=== PATIENT | female | born 1980 | race Two or more races ===

== ENCOUNTER 2021-01-07 15:27 | Emergency (ER) | payer MEDICAID ==
[2021-01-07] VITALS (7 sets, daily range): BP systolic 100–122; BP diastolic 65–78
[~2021-01-07] VITALS: Ht 157.5 cm; Wt 74.8 kg
--- NOTE | 2021-01-07 16:10 | Emergency Room Report ---
History of Present Illness General Chief Complaint: Headache Source: Patient Present Illness HPI Patient is a 40-year-old female presents for increased headache and generalized weakness. Reports having onset of symptoms over the past 3 days. Associated mild headache which had gradual onset and had been slightly improving. Denies any vomiting. Denies any focal weakness. Prior history of gallstones as well as anemia in the past. States she had just finished her menses. Denies any dysuria or cough. Allergies: Coded Allergies: No Known Allergies (Unverified , 01/07/21) COVID-19 Screening Contact w/high risk pt: No Experienced COVID-19 symptoms?: No COVID-19 Testing performed PHYSICAL CHEMIST: No Patient History Past Medical History: see triage record Last Menstrual Period: 01/05/21 Now: No Reviewed Nursing Documentation: PMH: Agreed; PSxH: Agreed Nursing Documentation-PMH Past Medical History: No Stated History Review of Systems All Other Systems: negative except mentioned in HPI Physical Exam Vital Signs Date Time Temp Pulse Resp B/P (MAP) Pulse Ox O2 Delivery O2 Flow Rate FiO2 01/07/21 15:47 98.2 82 18 124/68 (86) 98 Room Air Sp02 EP Interpretation: reviewed, normal General Appearance: normal inspection, well appearing, no apparent distress, alert, GCS 15, non-toxic, obese Head: atraumatic ENT: normal ENT inspection, hearing grossly normal, normal voice Neck: normal inspection, full range of motion, supple, no bony tend Respiratory: normal inspection, lungs clear, normal breath sounds, no respiratory distress, no retraction, no wheezing Cardiovascular #1: regular rate, rhythm, no edema Gastrointestinal: normal inspection, normal bowel sounds, non tender, soft, no guarding, no hernia Genitourinary: no CVA tenderness Musculoskeletal: normal inspection, back normal, normal range of motion Neurologic: alert, motor strength/tone normal, 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 Total critical care time excluding procedures approximately 45 minutes. Medical Decision Making Diagnostic Impression: Primary Impression: Anemia ER Course Patient presents for increased headache. Differential diagnosis include was not limited to intracranial hemorrhage, anemia, dehydration among others. Because of complexity of patient's case laboratory tests and imaging studies were ordered. Patient appears to have some significant anemia based on laboratory testing. Patient was consented for blood transfusion. She was given IV fluids as well as transfusion of blood. She states she felt much better after transfusion. Patient denies any active bleeding at this time. CT of the head read by radiologist no intracranial pathology. Patient advised to follow-up with her primary care physician for recheck. She is advised to continue taking iron and to return if she had any worsening of her condition or any other new concerns. This medical record is generated with [employer] director global sales software. There may be some director global sales discrepancies related to use of this software Labs Test 01/07/21 16:14 White Blood Count 7.3 K/UL (4.8-10.8) Red Blood Count 4.32 M/UL (4.20-5.40) Hemoglobin 7.1 G/DL (12.0-16.0) Hematocrit 26.2 % (37.0-47.0) Mean Corpuscular Volume 61 FL (80-99) Mean Corpuscular Hemoglobin 16.5 PG (27.0-31.0) Mean Corpuscular Hemoglobin Concent 27.3 G/DL (32.0-36.0) Red Cell Distribution Width 16.8 % (11.6-14.8) Platelet Count 426 K/UL (150-450) Mean Platelet Volume 8.9 FL (6.5-10.1) Neutrophils (%) (Auto) % (45.0-75.0) Lymphocytes (%) (Auto) % (20.0-45.0) Monocytes (%) (Auto) % (1.0-10.0) Eosinophils (%) (Auto) % (0.0-3.0) Basophils (%) (Auto) % (0.0-2.0) Differential Total Cells Counted 100 Neutrophils % (Manual) 71 % (45-75) Lymphocytes % (Manual) 23 % (20-45) Monocytes % (Manual) 6 % (1-10) Eosinophils % (Manual) 0 % (0-3) Basophils % (Manual) 0 % (0-2) Band Neutrophils 0 % (0-8) Platelet Estimate Increased Platelet Morphology Normal Hypochromasia 2+ Anisocytosis 2+ Microcytosis 2+ Ovalocytes Occasional Prothrombin Time 13.0 SEC (9.30-11.50) Prothromb Time International Ratio 1.2 (0.9-1.1) Activated Partial Thromboplast Time 22 SEC (23-33) Urine Color Yellow Urine Appearance Slightly cloudy Urine pH 7 (4.5-8.0) Urine Specific [place] 1.010 (1.005-1.035) Urine Protein 3+ (NEGATIVE) Urine Glucose (UA) Negative (NEGATIVE) Urine Ketones 1+ (NEGATIVE) Urine Blood 5+ (NEGATIVE) Urine Nitrite Positive (NEGATIVE) Urine Bilirubin Negative (NEGATIVE) Urine Urobilinogen Normal MG/DL (0.0-1.0) Urine Leukocyte Esterase 2+ (NEGATIVE) Urine RBC Tntc /HPF (0 - 2) Urine WBC 5-10 /HPF (0 - 2) Urine Squamous Epithelial Cells Moderate /LPF (NONE/OCC) Urine Bacteria Few /HPF (NONE) Urine HCG, Qualitative Negative (NEGATIVE) Sodium Level 141 MMOL/L (136-145) Potassium Level 3.7 MMOL/L (3.5-5.1) Chloride Level 106 MMOL/L (98-107) Carbon Dioxide Level 25 MMOL/L (21-32) Anion Gap 10 mmol/L (5-15) Blood Urea Nitrogen 10 mg/dL (7-18) Creatinine 0.7 MG/DL (0.55-1.30) Estimat Glomerular Filtration Rate > 60 mL/min (>60) Glucose Level 85 MG/DL (74-106) Calcium Level 8.7 MG/DL (8.5-10.1) Total Bilirubin 0.2 MG/DL (0.2-1.0) Aspartate Amino Transf (AST/SGOT) 20 U/L (15-37) Alanine Aminotransferase (ALT/SGPT) 23 U/L (12-78) Alkaline Phosphatase 74 U/L (46-116) Total Protein 7.4 G/DL (6.4-8.2) Albumin 3.5 G/DL (3.4-5.0) Globulin 3.9 g/dL Albumin/Globulin Ratio 0.9 (1.0-2.7) Thyroid Stimulating Hormone (TSH) 2.011 uiU/mL (0.358-3.740) Last Vital Signs Date Time Temp Pulse Resp B/P (MAP) Pulse Ox O2 Delivery O2 Flow Rate FiO2 01/07/21 15:47 98.2 82 18 124/68 (86) 98 Room Air Status: improved Disposition: HOME, SELF-CARE Condition: Stable Scripts Docusate Sodium* (COLACE*) 100 Mg Capsule 100 MG ORAL TWICE A DAY, #20 CAP Prov: Nahum Serrano MD 01/07/21 Ferrous Sulfate* (FERROUS SULFATE*) 325 Mg Tablet 325 MG ORAL DAILY for SUPPLEMENT, #30 TAB 0 Refills Prov: Nahum Serrano MD 01/07/21 Referrals: NON PHYSICIAN (PCP) Nahum Serrano MD Jan 07, 2021 16:10
[2021-01-07 16:46] LABS: APPEARANCE,URINE SLIGHTLY CLOUDY; BILIRUBIN, URINE NEGATIVE (NEGATIVE); GLUCOSE, URINE (UA) NEGATIVE (NEGATIVE); KETONES,URINE 1+ (NEGATIVE); LEUKOCYTE ESTERASE ,URINE 2+ (NEGATIVE); NITRITE,URINE POSITIVE (NEGATIVE); PH,URINE 7 (4.5-8.0); PROTEIN,URINE 3+ (NEGATIVE); UROBILINOGEN,URINE NORMAL MG/DL (0.0-1.0)
[2021-01-07 16:48] LABS: INR 1.2 (0.9-1.1)
[2021-01-07 16:51] LABS: ANION GAP 10 mmol/L (5-15); BLOOD UREA NITROGEN 10 mg/dL (7-18); CALCIUM 8.7 MG/DL (8.5-10.1); CARBON DIOXIDE 25 MMOL/L (21-32); CHLORIDE 106 MMOL/L (98-107); CREATININE 0.7 MG/DL (0.55-1.30); HEMATOCRIT 26.2 % (37.0-47.0); HEMOGLOBIN 7.1 G/DL (12.0-16.0); MEAN CORPUSCULAR VOLUME 61 FL (80-99); PLATELET COUNT 426 K/UL (150-450); POTASSIUM 3.7 MMOL/L (3.5-5.1); RED BLOOD COUNT 4.32 M/UL (4.20-5.40); RED CELL DISTRIBUTION WIDTH 16.8 % (11.6-14.8); SODIUM 141 MMOL/L (136-145); WHITE BLOOD COUNT 7.3 K/UL (4.8-10.8)
[2021-01-07 16:54] LABS: COLOR,URINE YELLOW
--- NOTE | 2021-01-07 17:04 | Diagnostic Imaging Report ---
EXAM: CT Head Without Intravenous Contrast CLINICAL HISTORY: DIZZY TECHNIQUE: Axial computed tomography images of the head/brain without intravenous contrast. CTDI is 53.4 mGy and DLP is 992.1 mGy-cm. One or more of the following dose reduction techniques were used: automated exposure control, adjustment of the mA and/or kV according to patient size, use of iterative reconstruction technique. COMPARISON: None FINDINGS: Brain: No acute infarct or hemorrhage. No extra-axial fluid collection. No mass effect or midline shift. Ventricles and sulci: Normal. No ventriculomegaly or intraventricular hemorrhage. Bones: Normal. No bony lesion or acute fracture. Subcutaneous tissues: Normal. Sinuses: Normal. No air-fluid levels or mucosal thickening. Mastoid air cells: Normal. Orbits: Grossly unremarkable. IMPRESSION: No acute intracranial abnormality.
[2021-01-07 17:06] LABS: ALANINE AMINOTRANSFERASE 23 U/L (12-78); ALBUMIN 3.5 G/DL (3.4-5.0); ALBUMIN/GLOBULIN RATIO 0.9 (1.0-2.7); ALKALINE PHOSPHATASE 74 U/L (46-116); ASPARTATE AMINO TRANSFERASE 20 U/L (15-37); BILIRUBIN,TOTAL 0.2 MG/DL (0.2-1.0)
[2021-01-07] MEDS ORDERED: COLACE100 MG ORAL (17:21)
[2021-01-07] MEDS ORDERED: FERROUS SULFAT325 MG ORAL (17:21)
--- NOTE | 2021-01-07 18:47 | NUR ---
pt arrived for [facility], dizziness, pulsing in R ear, weakness. pt denies LOC. pt states vomiting x1 last night. pt states hx anemia. pt denies allergies. NIHSS performed, negative. pt on continuous cardiac/O2 monitor. IV placed, blood drawn for type & cross, labs sent, urine sent. pt A&Ox4, ambulatory, stable. pt Hgb 7. ordered blood transfusion. pt signed consent using owner spa director. pt placed on monitor. vitals stable. IV working.
--- NOTE | 2021-01-07 19:29 | NUR ---
ED Nurse Note: pt Hgb 7. ordered blood transfusion. pt signed consent using tree planter. pt placed on monitor. vitals stable. IV working. 1 unit of blood initiated, verified with second RN Hesham, patient is in bed, no complaints at the moment, AOx4, ambulatory
--- NOTE | 2021-01-07 21:15 | NUR ---
ED Nurse Note: Pt resting quietly, bedside ultrasound completed, waiting for results and disposition, IV site intact and patent, V/S stable, nad or changes, will continue to closely montior.
--- NOTE | 2021-01-07 22:30 | NUR ---
ER DISCHARGE NOTE: Patient is cleared to be discharged per ERMD, pt is aox4, on room air, with stable vital signs. pt was given dc and prescription instructions, pt was able to verbalize understanding, pt id band and iv site removed without complications. pt is able to ambulate with steady gait. pt took all belongings.
== END 2021-01-07 22:30 | disposition home or self-care (01) ==
LOC: EMR 16:05
DX: D64.9 Anemia, unspecified (principal); E66.9 Obesity, unspecified; Z68.30 Body mass index [BMI] 30.0-30.9, adult
CPT/HCPCS: 36415; 70450; 80053; 81001; 81025; 84443; 85007; 85025; 85610; 85730; 86850; 86900; 86901; 86920; 96360; P9016; Z7502; 36430; 99291